=== PATIENT | female | born 1955 | race Two or more races ===

== ENCOUNTER 2024-12-14 20:18 | Emergency (ER) | payer OTHER, SELFPAY ==
[2024-12-14 20:22] VITALS: BMI 30.1
--- NOTE | 2024-12-14 20:44 | PC.NURSE ---
FAMILY MEMBER AND PATIENT STATED THEY WERE GOING TO LEAVE, PATIENT LEFT ED LOBBY AT 2043.
== END 2024-12-14 20:54 | disposition left against medical advice (07) ==
LOC: SERX 21:21
PROVIDERS: Emergency Provider Emergency Medicine
DX: Z53.21 Procedure and treatment not carried out due to patient leaving prior to being seen by health care provider (principal)
CPT/HCPCS: 99281

== ENCOUNTER → 2024-12-30 | Outpatient (CLI) | payer MEDICARE, SELFPAY ==
--- NOTE | 2024-12-30 12:00 | XR_ITS ---
Examination: Bone densitometry Date and time of exam: December 30, 2024, 1309 hours INDICATIONS: Menopause age 41 vitamin D3 4 years history postmenopausal fracture forearm, personal history osteopenia Technique: Lumbar spine and hip total bone mineralization values of an calculated. Peak reference and age match control results have been displayed. Findings: Lumbar spine total bone mineralization is 0.925 gm/cm2. This is 1.1 standard deviations below peak reference. This is 1.0 standard deviations above age-matched controls. Hip total bone mineralization is 0.872 gm/cm2 This is 0.7 standard deviations below peak reference. This is 0.8 standard deviations above age-matched controls Impression: There is osteopenia based on lumbar spine measurements. There is osteopenia based on hip measurements Lumbar mineralization is increased 5.0% compared with 10/26/2020 Hip mineralization is increased 3.5% compared with 10/26/2020
== END | disposition home or self-care (01) ==
PROVIDERS: Referring Provider Internal Medicine; Visit Provider Internal Medicine
DX: M85.89 Other specified disorders of bone density and structure, multiple sites (principal)
CPT/HCPCS: 77080